=== PATIENT | female | born 1995 | race African-American/Black ===

== ENCOUNTER 2021-02-26 12:15 | Inpatient (IN) | payer MEDICAID, OTHER ==
[~2021-02-26] VITALS: Ht 162.6 cm; Wt 47.2 kg
[~2021-02-26 12:15] MED LIST: AMOX1TAB16 MT; XAR15 MT
[2021-02-26] MEDS ORDERED: SODIUM CHLORIDE 0.9% 1000ML BAG (SEPSIS BOLUS) IV ONE (12:30)
[2021-02-26 13:05] LABS: HEMATOCRIT. 31.7 % (36.0-48.0); HEMOGLOBIN. 10.5 g/dL (12.0-16.0); MEAN CORPUSCULAR HEMOGLOBIN 26.3 pg (28.0-32.0); MEAN CORPUSCULAR VOLUME 79.4 fL (81.0-99.0); MEAN PLATELET VOLUME 10.1 fl (7.4-10.4); PLATELET 433 x1000/uL (130-400); RED BLOOD CELL COUNT 3.99 mill/uL (4.2-5.4); RED CELL DISTRIBUTION WIDTH 16.2 % (11.6-14.6)
[2021-02-26 13:18] LABS: CHLORIDE 100 mEq/L (98-107)
[2021-02-26 13:43] LABS: D-DIMER 3.43 mg/L FEU (<0.50)
[2021-02-26] MEDS ORDERED: CEFTRIAXONE 2 G PREMIX 50 ML IV ONE (13:45)
[2021-02-26] MEDS ORDERED: DEXAMETHASONE 4MG/ML 1ML VIAL IV SCH (13:45)
[2021-02-26] MEDS ORDERED: AZITHROMYCIN 500MG/250ML 250 ML IV ONE (13:45)
[2021-02-26 14:29] LABS: PLATELET ESTIMATE INCREASED
[2021-02-26 14:51] LABS: CLARITY URINE CLOUDY (CLEAR); COLOR URINE DK YELLOW (YELLOW); KETONES URINE 3+ (NEGATIVE); LEUKOCYTE ESTERASE URINE 1+ (NEGATIVE); NITRITE URINE NEGATIVE (NEGATIVE); OCCULT BLOOD URINE 1+ (NEGATIVE); PROTEIN URINE 1+ (NEGATIVE); SPECIFIC GRAVITY URINE 1.023 (1.005-1.030)
[2021-02-26] MEDS ORDERED: POTASSIUM CHLORIDE 20MEQ TABLET SR PO NR (17:45)
[2021-02-26] MEDS ORDERED: CLONIDINE 0.1MG TABLET PO PRN (17:45)
[2021-02-26] MEDS ORDERED: ONDANSETRON HCL 4MG/2ML INJ IV PRN (17:45)
[2021-02-26] MEDS ORDERED: HYDROCODONE/ACETAMINOPHEN 5/325MG TABLET PO PRN (17:45)
[2021-02-26] MEDS ORDERED: ACETAMINOPHEN 325MG TABLET PO PRN ×2 (17:45)
[2021-02-26] MEDS ORDERED: DOCUSATE SODIUM 100MG CAPSULE PO PRN (17:45)
[2021-02-26] MEDS ORDERED: LORAZEPAM 0.5MG TABLET PO PRN (17:45)
[2021-02-26] MEDS ORDERED: ENOXAPARIN 40MG/0.4ML SYR SUBCUT SCH (18:00)
[2021-02-26 18:27] LABS: HCG SCREEN NEGATIVE
[2021-02-26 20:18] LABS: *AMPHETAMINES SCREEN URINE NEGATIVE (NEGATIVE); *BARBITURATES SCREEN URINE NEGATIVE (NEGATIVE); *BENZODIAZEPINES SCREEN URINE NEGATIVE (NEGATIVE); *COCAINE SCREEN URINE NEGATIVE (NEGATIVE); METHADONE URINE SCREEN NEGATIVE (NEGATIVE); OPIATES URINE SCREEN NEGATIVE (NEGATIVE)
[2021-02-26 20:19] LABS: PHENCYCLIDINE URINE SCREEN NEGATIVE (NEGATIVE)
[2021-02-26 20:22] LABS: CANNABINOID URINE SCREEN PRESUMTIVE POSITIVE (NEGATIVE)
[2021-02-26] MEDS ORDERED: IOHEXOL-350 100 ML BOTTLE ONE (21:06)
[2021-02-26 22:33] VITALS: BP 110/74
[2021-02-27 04:00] VITALS: BP 118/76
[2021-02-27 06:59] LABS: CHLORIDE 105 mEq/L (98-107)
[2021-02-27 07:45] LABS: HEMATOCRIT. 28.6 % (36.0-48.0); HEMOGLOBIN. 9.3 g/dL (12.0-16.0); MEAN CORPUSCULAR HEMOGLOBIN 25.6 pg (28.0-32.0); MEAN CORPUSCULAR VOLUME 79.2 fL (81.0-99.0); MEAN PLATELET VOLUME 10.9 fl (7.4-10.4); PLATELET 425 x1000/uL (130-400); RED BLOOD CELL COUNT 3.62 mill/uL (4.2-5.4); RED CELL DISTRIBUTION WIDTH 16.2 % (11.6-14.6)
[2021-02-27 08:00] VITALS: BP 107/68
[2021-02-27] MEDS: DEXAMETHASONE 10 MG/ML VIAL IV SCH (10:04)
[2021-02-27] MEDS ORDERED: BENZONATATE 100MG CAPSULE PO PRN (11:15)
[2021-02-27] MEDS ORDERED: NALOXONE HCL 0.4MG/ML VIAL IV PRN (11:30)
[2021-02-27] MEDS ORDERED: BISACODYL 10MG SUPP PR PRN (11:45)
[2021-02-27 12:00] VITALS: BP 104/52
[2021-02-27] MEDS ORDERED: ENOXAPARIN 60MG/0.6ML SYR SUBCUT NR (13:00)
[2021-02-27] MEDS: SODIUM CHLORIDE 0.9% 1,000 ML IV SCH (13:33)
[2021-02-27] MEDS: PIPERACILLIN/TAZOBACTAM 3.375 G in DEXTROSE 5% WATER 50 ML IV SCH ×2 (13:34→21:56)
[2021-02-27] MEDS ORDERED: CEFTRIAXONE 1 G PREMIX 50 ML IV SCH (15:00)
[2021-02-27] MEDS ORDERED: CEFTRIAXONE 1,000 MG in DEXTROSE 5% WATER 50 ML IV SCH (15:00)
[2021-02-27 15:59] LABS: INR 1.2; PROTHROMBIN TIME 12.5 sec (9.6-11.0)
[2021-02-27 16:00] VITALS: BP 110/60
[2021-02-27] MEDS ORDERED: AZITHROMYCIN 500MG/250ML 250 ML IV SCH (16:00)
[2021-02-27] MEDS ORDERED: IPRATROPIUM/ALBUTEROL 0.5-3(2.5)MG/3ML NEB HHN PRN (17:30)
[2021-02-27] MEDS ORDERED: SODIUM CHLORIDE 10% FOR INH 15ML VIAL NEB INH SCH (17:30)
[2021-02-27 18:36] LABS: PLATELET ESTIMATE INCREASED
[2021-02-27 20:00] VITALS: BP 115/72
[2021-02-27] MEDS: GUAIFENESIN 600MG ER TABLET PO SCH (21:00)
[2021-02-27] MEDS: IPRATROPIUM/ALBUTEROL 0.5-3(2.5)MG/3ML NEB HHN SCH (21:56)
[2021-02-28] VITALS: BP 136/79
[2021-02-28] MEDS: ACETYLCYSTEINE 100MG/ML 10% VIAL 4ML INH SCH ×2 (01:45→08:17)
[2021-02-28] MEDS: IPRATROPIUM/ALBUTEROL 0.5-3(2.5)MG/3ML NEB HHN SCH ×4 (01:45→12:22)
[2021-02-28 04:00] VITALS: BP 133/62
[2021-02-28] MEDS: PIPERACILLIN/TAZOBACTAM 3.375 G in DEXTROSE 5% WATER 50 ML IV SCH ×3 (06:16→22:29)
[2021-02-28] MEDS: ENOXAPARIN 60MG/0.6ML SYR SUBCUT SCH ×2 (06:17→18:48)
[2021-02-28 07:42] LABS: PHOSPHORUS 1.6 mg/dL (2.5-4.9)
[2021-02-28] MEDS: SODIUM CHLORIDE 0.9% 1,000 ML IV SCH (07:45)
[2021-02-28 07:46] LABS: FOLIC ACID (FOLATE) SERUM 7.9 ng/mL (>5.38)
[2021-02-28 07:54] LABS: HEPATITIS B SURFACE ANTIGEN NEGATIVE
[2021-02-28 08:00] VITALS: BP 112/59
[2021-02-28] MEDS: GUAIFENESIN 600MG ER TABLET PO SCH ×2 (10:28→21:00)
[2021-02-28] MEDS: DEXAMETHASONE 10 MG/ML VIAL IV SCH (10:28)
[2021-02-28 12:00] VITALS: BP 131/85
[2021-02-28 12:54] LABS: HEMATOCRIT. 27.2 % (36.0-48.0); HEMOGLOBIN. 8.7 g/dL (12.0-16.0); MEAN CORPUSCULAR HEMOGLOBIN 24.5 pg (28.0-32.0); MEAN CORPUSCULAR VOLUME 76.8 fL (81.0-99.0); MEAN PLATELET VOLUME 10.7 fl (7.4-10.4); PLATELET 539 x1000/uL (130-400); RED BLOOD CELL COUNT 3.55 mill/uL (4.2-5.4); RED CELL DISTRIBUTION WIDTH 16.1 % (11.6-14.6)
[2021-02-28 13:10] LABS: CHLORIDE 107 mEq/L (98-107)
[2021-02-28 16:00] VITALS: BP 129/91
[2021-02-28] MEDS ORDERED: SODIUM PHOS,M-BASIC-D-BASIC 15 MM in DEXT 5% WATER 245 ML IV ONE (17:30)
[2021-02-28 20:00] VITALS: BP 132/81
[2021-02-28 20:29] LABS: PLATELET ESTIMATE INCREASED
[2021-02-28] MEDS: IPRATROPIUM BROMIDE (0.02%) 0.5MG/2.5ML NEB HHN SCH (20:49)
[2021-03-01] VITALS: BP 129/69
[2021-03-01] MEDS: IPRATROPIUM BROMIDE (0.02%) 0.5MG/2.5ML NEB HHN SCH ×4 (01:21→21:16)
[2021-03-01] MEDS: SODIUM CHLORIDE 0.9% 1,000 ML IV SCH ×2 (03:45→23:45)
[2021-03-01 04:00] VITALS: BP 134/78
[2021-03-01] MEDS: ENOXAPARIN 60MG/0.6ML SYR SUBCUT SCH ×2 (06:26→17:59)
[2021-03-01] MEDS: PIPERACILLIN/TAZOBACTAM 3.375 G in DEXTROSE 5% WATER 50 ML IV SCH ×3 (06:26→21:38)
[2021-03-01] MEDS: ACETYLCYSTEINE 100MG/ML 10% VIAL 4ML INH SCH ×2 (08:00→21:16)
[2021-03-01 08:02] LABS: BASOPHILS % 0.3 % (0.0-2.0); HEMATOCRIT. 24.2 % (36.0-48.0); HEMOGLOBIN. 8.1 g/dL (12.0-16.0); LYMPHOCYTES % 12.6 % (20.0-50.0); MEAN CORPUSCULAR HEMOGLOBIN 26.1 pg (28.0-32.0); MEAN CORPUSCULAR VOLUME 77.8 fL (81.0-99.0); MEAN PLATELET VOLUME 9.4 fl (7.4-10.4); MONOCYTES % 7.4 % (2.0-8.0); NEUTROPHILS % 79.7 % (40.0-76.0); PLATELET 523 x1000/uL (130-400); RED BLOOD CELL COUNT 3.11 mill/uL (4.2-5.4); RED CELL DISTRIBUTION WIDTH 16.3 % (11.6-14.6)
[2021-03-01 08:06] VITALS: BP 129/70
[2021-03-01 08:13] LABS: CHLORIDE 107 mEq/L (98-107)
[2021-03-01] MEDS: ASCORBIC ACID 500 MG TABLET PO SCH (09:06)
[2021-03-01] MEDS: GUAIFENESIN 600MG ER TABLET PO SCH ×2 (09:06→21:37)
[2021-03-01] MEDS: DEXAMETHASONE 10 MG/ML VIAL IV SCH (09:06)
[2021-03-01] MEDS: ZINC SULFATE 220 MG ( 50 ) CAPSULE PO SCH (09:06)
[2021-03-01 12:04] VITALS: BP 112/60
[2021-03-01 16:15] VITALS: BP 111/66
[2021-03-01 20:00] VITALS: BP 127/70
[2021-03-02] VITALS: BP 124/80
[2021-03-02] MEDS: IPRATROPIUM BROMIDE (0.02%) 0.5MG/2.5ML NEB HHN SCH ×2 (02:00→09:54)
[2021-03-02 04:00] VITALS: BP 122/67
[2021-03-02] MEDS: PIPERACILLIN/TAZOBACTAM 3.375 G in DEXTROSE 5% WATER 50 ML IV SCH ×2 (05:14→14:00)
[2021-03-02] MEDS: ENOXAPARIN 60MG/0.6ML SYR SUBCUT SCH (05:15)
[2021-03-02 06:54] LABS: CHLORIDE 105 mEq/L (98-107)
[2021-03-02 07:14] LABS: BASOPHILS % 0.3 % (0.0-2.0); HEMATOCRIT. 26.1 % (36.0-48.0); HEMOGLOBIN. 8.9 g/dL (12.0-16.0); LYMPHOCYTES % 21.2 % (20.0-50.0); MEAN CORPUSCULAR HEMOGLOBIN 27.3 pg (28.0-32.0); MEAN PLATELET VOLUME 9.6 fl (7.4-10.4); MONOCYTES % 8.2 % (2.0-8.0); NEUTROPHILS % 70.3 % (40.0-76.0); PLATELET 571 x1000/uL (130-400); RED BLOOD CELL COUNT 3.26 mill/uL (4.2-5.4); RED CELL DISTRIBUTION WIDTH 16.3 % (11.6-14.6)
[2021-03-02 08:02] VITALS: BP 118/64
[2021-03-02] MEDS: GUAIFENESIN 600MG ER TABLET PO SCH (09:18)
[2021-03-02] MEDS: ZINC SULFATE 220 MG ( 50 ) CAPSULE PO SCH (09:18)
[2021-03-02] MEDS: DEXAMETHASONE 10 MG/ML VIAL IV SCH (09:18)
[2021-03-02] MEDS: ACETYLCYSTEINE 100MG/ML 10% VIAL 4ML INH SCH ×2 (09:18→09:54)
[2021-03-02] MEDS: ASCORBIC ACID 500 MG TABLET PO SCH (09:18)
[2021-03-02] MEDS ORDERED: GUAI600T44 PO (10:32)
[2021-03-02] MEDS ORDERED: MED4 MT (10:32)
[2021-03-02] MEDS ORDERED: BENZ100C86 PO (10:32)
[2021-03-02] MEDS ORDERED: ZINC220C2 PO (10:32)
[2021-03-02] MEDS ORDERED: LEVO500T89 MT (10:32)
[2021-03-02] MEDS ORDERED: ASCO500T20 PO (10:32)
[2021-03-02 12:00] VITALS: BP 130/88
[2021-03-02] MEDS ORDERED: ALBU6.7H15 INH (13:04)
[2021-03-02 14:54] VITALS: BP 130/88
== END 2021-03-02 15:32 | disposition home or self-care (01) | DRG 720 ==
LOC: ER 12:15 → EDBEDREQ 17:02 → EDBEDREQSVC 17:02 → EDBEDREQTM 17:02 → ENRESERV 21:10 → 6WST 23:00
PROVIDERS: ADMIT Internal Medicine; ATTEND Internal Medicine
DX: A41.9 Sepsis, unspecified organism (principal); J96.01 Acute respiratory failure with hypoxia; J18.1 Lobar pneumonia, unspecified organism; G82.20 Paraplegia, unspecified; E46 Unspecified protein-calorie malnutrition; J15.9 Unspecified bacterial pneumonia; L89.156 Pressure-induced deep tissue damage of sacral region; E87.1 Hypo-osmolality and hyponatremia; F12.90 Cannabis use, unspecified, uncomplicated; D64.9 Anemia, unspecified; E61.1 Iron deficiency; E87.6 Hypokalemia; J98.19 Other pulmonary collapse; F41.9 Anxiety disorder, unspecified; Z20.822 Contact with and (suspected) exposure to COVID-19; N39.0 Urinary tract infection, site not specified; K82.8 Other specified diseases of gallbladder; R74.01 Elevation of levels of liver transaminase levels; R79.89 Other specified abnormal findings of blood chemistry; Z79.2 Long term (current) use of antibiotics; Z79.01 Long term (current) use of anticoagulants; Z68.1 Body mass index [BMI] 19.9 or less, adult; Z95.828 Presence of other vascular implants and grafts; Z86.16 Personal history of COVID-19; Z87.81 Personal history of (healed) traumatic fracture; Z86.718 Personal history of other venous thrombosis and embolism
CPT/HCPCS: 36415; 71045; 71275; 76700; 80048; 80053; 80076; 80305; 81003; 82607; 82728; 82746; 83540; 83550; 83605; 83735; 84100; 84145; 84484; 84703; 85025; 85379; 85384; 86140; 86705; 86709; 86803; 87340; 87426; 93005; 93970; 94640; 94667; 97161; 99291; J0456; J0696; J1100; J1650; J2543; J3490; J7030; J7060; J7131; J7608; Q9967; A4315